=== PATIENT | male | born 1960 | race Caucasian/White ===

== ENCOUNTER 2025-05-18 05:17 | Observation (INO) ==
--- NOTE | 2025-04-07 14:14 | PAT Medication Instructions ---
Medication Instructions Date of Service April 07, 2025 Home Medications Medical Marijuana 1 dose PO UD PRN Pain amiodarone 200 mg tablet 200 mg PO QAM amlodipine 10 mg tablet 10 mg PO QAM apixaban 5 mg tablet (Eliquis) 5 mg PO BID atorvastatin 40 mg tablet 40 mg PO HS duloxetine 60 mg capsule,delayed release 60 mg PO QAM epinephrine 0.3 mg/0.3 mL injection, auto-injector 0.3 mg IM Q4H PRN Anaphylaxis finasteride 5 mg tablet 5 mg PO QAM lisinopril 10 mg tablet 10 mg PO QAM metoprolol succinate 25 mg tablet,extended release 24 hr 25 mg PO QAM nitroglycerin 0.4 mg sublingual tablet 0.4 mg sublingual UD PRN Chest Pain tamsulosin 0.4 mg capsule 0.4 mg PO BID Continue as directed epinephrine 0.3 mg/0.3 mL injection, auto-injector 0.3 mg IM Q4H PRN Anaphylaxis (if needed) nitroglycerin 0.4 mg sublingual tablet 0.4 mg sublingual UD PRN Chest Pain (if needed) ASK your prescriber and surgeon apixaban 5 mg tablet (Eliquis) 5 mg PO BID (From anesthesia perspective, apixaban/Eliquis is requested to be stopped 72 hours before surgery. Please check if okay with doctor that prescribes this to you) DO NOT take the morning of surgery lisinopril 10 mg tablet 10 mg PO QAM Medical Marijuana 1 dose PO UD PRN Pain Take morning of surgery With a small sip of water, OTHERWISE NOTHING TO EAT OR DRINK AFTER MIDNIGHT: amiodarone 200 mg tablet 200 mg PO QAM amlodipine 10 mg tablet 10 mg PO QAM duloxetine 60 mg capsule,delayed release 60 mg PO QAM finasteride 5 mg tablet 5 mg PO QAM metoprolol succinate 25 mg tablet,extended release 24 hr 25 mg PO QAM tamsulosin 0.4 mg capsule 0.4 mg PO BID Take evening before surgery atorvastatin 40 mg tablet 40 mg PO HS tamsulosin 0.4 mg capsule 0.4 mg PO BID Other Notes If you have any questions please call us at [phone] or [phone] or [phone] or [phone]
--- NOTE | 2025-04-26 14:09 | Anesthesiology Consultation ---
Date of Service April 26, 2025 Assessment & Plan (1) Encounter for pre-operative examination: - Infectious disease screening: Per assessment on 04/26/25- No known recent infectious disease contacts or current infectious disease symptoms. - Outpatient joint assessment: Pt currently scheduled for inpatient pathway. If surgeon requests review for outpatient joint pathway, patient is not a recommended candidate for outpatient joint program from anesthesia standpoint based on available information. - Eliquis instructions: Cardio notes indicate recommendation that patient hold Eliquis 2 days prior to surgery. Patient was made aware at PAT visit that for neuraxial anesthesia, anesthesia requests Eliquis needs to be held 72 hours prior to surgery and for patient to contact prescriber to see if okay from their perspective. Attempts to contact patient via phone for update/further discussion regarding this has been unsuccessful as of 05/03/25; if able to get in contact with patient prior to surgery, will update note with new information if received. - Anesthesia reaction: Patient states that Left ACL repair was done in the at [facility] under neuraxial anesthesia. Patient states he had awareness and perioperative pain that caused them to have him be put fully asleep (presumably general anesthesia). - Cardiology visit 03/18/25): "Nonischemic cardiomyopathy.. EF 37% 2012, normalized 2015.. Repeat echocardiogram to reassess.. Ascending aorta dilation.. Atherosclerotic ulcer of aorta-Repeat CTA chest to reassess.. PAF (paroxysmal atrial fibrillation).. Bradycardia, sinus.. Stable per EKG today. NSR Unusual P axis. Patient asymptomatic.. Follow-up with EP.. Continue amiodarone 200mg daily.. Anticoagulated with Eliquis 5mg BID. No bleeding concerns.. Preoperative cardiovascular examination- Clearance pending echocardiogram, labs and CTA chest .. Blood pressure is well controlled.." Chest CTA done 04/02/25. - Cardiology note 04/06/25: Chest CTA done 04/02/25 and reviewed > "Stable pe netrating ulcer of descending aorta since 2019 Ascending aorta/aortic root enlarged from previous study but stable Avoid lifting >30 pounds Routinely check BP and call if >130/80" - Echo completed 04/26/25. Cardio note 04/30/25: "ECHO with normal LVEF Moderate RV dilation. Normal systolic function Mild to moderately leaky tricuspid valve Likely secondary top untreated LISA.. Please forward to surgeon: In terms of preop risk assessment, per Juan M Criteria, patient would be placed at a moderate risk for any adverse perioperative cardiovascular events associated with TKA surgery. Patient is on a good medication regimen and no other cardiac testing or interventions would further lower that risk. He may hold Eliquis 2 days prior to surgery. Resume once HD stable per surgeons direction.." - Acceptable risk for surgery pending surgeon-ordered PCP preop evaluation (Dr. Jones/Seema; appt 04/27). Chart Review Chart Review: Patient seen in Pre Admission Testing Teaching & Discussion Pre-Anesthesia Teaching/Discussion Notes: Instructed NPO after midnight before surgery,except medications with 15 cc of water. Medication instructions provided according to the PAT guidelines. History Surgery Operation Date: 05/18/25 07:00 Proposed Procedures p Right Total Knee Arthroplasty - Yaw Niurka Hughes MD Height/Weight Height: 5 ft 4.5 in Weight: 87.1 kg Allergies Allergy/AdvReac Type Severity Reaction Status Date / Time bee venom protein (honey bee) Allergy Severe Anaphylaxis Verified 04/07/25 07:33 tramadol Allergy Mild Agitated Verified 04/07/25 07:33 Medications Home Medications Medication Instructions Recorded Confirmed Last Taken Medical Marijuana 1 dose PO UD PRN Pain 04/07/25 04/07/25 Unknown amiodarone 200 mg tablet 200 mg PO QAM 04/07/25 04/07/25 Unknown amlodipine 10 mg tablet 10 mg PO QAM 04/07/25 04/07/25 Unknown apixaban 5 mg tablet (Eliquis) 5 mg PO BID 04/07/25 04/07/25 Unknown atorvastatin 40 mg tablet 40 mg PO HS 04/07/25 04/07/25 Unknown duloxetine 60 mg capsule,delayed 60 mg PO QAM 04/07/25 04/07/25 Unknown release epinephrine 0.3 mg/0.3 mL 0.3 mg IM Q4H PRN Anaphylaxis 04/07/25 04/07/25 Unknown injection, auto-injector finasteride 5 mg tablet 5 mg PO QAM 04/07/25 04/07/25 Unknown lisinopril 10 mg tablet 10 mg PO QAM 04/07/25 04/07/25 Unknown metoprolol succinate 25 mg 25 mg PO QAM 04/07/25 04/07/25 Unknown tablet,extended release 24 hr nitroglycerin 0.4 mg sublingual 0.4 mg sublingual UD PRN Chest Pain 04/07/25 04/07/25 Unknown tablet tamsulosin 0.4 mg capsule 0.4 mg PO BID 04/07/25 04/07/25 Unknown Past Medical History Medical History Atherosclerotic ulcer of aorta [facility] BPH (benign prostatic hyperplasia) COVID-19 12/2021, asymptomatic DDD (degenerative disc disease) Glaucoma History of atrial fibrillation s/p cardiac ablation Follows with [facility] cardio KOBUK (hard of hearing) HTN (hypertension) Hx of renal calculi Nonischemic cardiomyopathy [facility] cardio visit 03/18/25: Recommend updating Echo, labs, CTA before providing clearance Osteoarthritis Poor historian Sleep apnea "Never got CPAP" Exercise / Class Metabolic Activity III < 4 Walking/Shop/Light housework Past Family History Family History Other No family history of adverse response to anesthesia Past Surgical History Surgical History History of back surgery x4, lumbar History of cardiac cath "Years ago"- no stents History of cardiac radiofrequency ablation History of colonoscopy History of hernia repair History of knee surgery Left ACL repair ([place]) Nausea and vomiting after administration of anesthetic agent "with most recent surgery"; no issues with prior/other surgeries/anesthesia S/P cystoscopy with ureteral stent placement w/laser destruction of stones S/P epidural steroid injection Past Anesthesia History No Family Hx of Anesthesia Complications and Other * Patient states that Left ACL repair was done in the at [facility] under neuraxial anesthesia. Patient states he had awareness and perioperative pain that caused them to have him be put fully asleep (presumably general anesthesia). History of PONV No Hx of Motion Sickness and History of PONV Social History Smoking Status: Former smoker Do You Dip or Chew Tobacco: No (Quit 1999) Smoking End Date: Quit 1999 Hx Alcohol Use: Yes Alcohol type: beer alcohol intake frequency: holidays/special occasions only substance use type: former substance user (Many years ago for cocaine/heroin), marijuana (Daily medical marijuana), crack/cocaine and heroin Review of Systems Patient denies chest pain, shortness of breath, fever, chills, cough, wheezing, palpitations. Physical Exam Vital Signs BP 148/90 P 63 TEMP 97.7 SP02 97%RA RESP 16 Physical Full cervical extension range of motion. Full TMJ range of motion. TMD > 3.5 finger breaths Mallampati Score I Dentition: several missing teeth Lungs: clear throughout to auscultation Cardiac: regular rate and rhythm, no murmurs noted Spine: normal Carotid arteries: negative bruit Extremities: no LE edema Lab Results Anesthesia Preop Results Results Anesthesia Widget: WBC 6.60 K/ul (4.8-10.8) 04/26/25 Hgb 15.6 g/dl (14.0-18.0) 04/26/25 Hct 44.7 % (42.0-52.0) 04/26/25 Plt 215 K/uL (130-400) 04/26/25 Na 144 mmol/L (136-145) 04/26/25 K 3.3 mmol/L (3.5-5.1) L 04/26/25 Cl 104 mmol/L (98-107) 04/26/25 CO2 30 mmol/L (21-32) 04/26/25 BUN 11 mg/dl (6-23) 04/26/25 Creat 0.76 mg/dl (0.6-1.4) 04/26/25 Glucose Level 93 mg/dl (70-99(Fasting)) 04/26/25 PT 10.0 Seconds (9.0-12.0) 04/26/25 PTT 28 Seconds (21-31) 04/26/25 INR 0.9 (0.9-1.1) 04/26/25 Urine Color Yellow 04/26/25 Urine Appearance Clear (Clear) 04/26/25 Urine pH 7.0 (4.5-7.5) 04/26/25 Urine Specific [place] 1.010 (1.000-1.030) 04/26/25 Urine Protein Negative (Negative) 04/26/25 Urine Glucose (UA) Negative (Negative) 04/26/25 Urine Ketones Negative (Negative) 04/26/25 Urine Blood Negative (Negative) 04/26/25 Urine Nitrite Negative (Negative) 04/26/25 Urine Bilirubin Negative (Negative) 04/26/25 Urine Urobilinogen Negative (Negative) 04/26/25 Urine Leukocyte Esterase Negative (Negative) 04/26/25 Blood Type O Positive 04/26/25 Antibody Screen NEGATIVE 04/26/25 Testing Electrocardiogram Date: 03/18/25 Unusual P axis, possible ectopic atrial bradycardia. 54bpm. Moderate voltage criteria, may be normal variant. Reviewed at Cardio visit from same day* Echocardiogram Date: 04/26/25 EF 65%. Moderate cLVH. Grade II DD. Moderate RVD with normal systolic function. Mild AI. Mild to moderate TR. Mildly elevated pulmonary artery pressures; estimated PASP 36mmhg and PAMP is 26mmhg. Stress Test Date: 03/07/23 Type: nuclear Negative for ischemia; however the TID is upper limits of normal at 1.27 ( abnormal TID could correlate with balanced ischemia). LVEF 44%. Could consider cardiac CT or cath if clinically warranted. Stress test findings reviewed by [facility] Cardio; per note 03/08/23, "Nuclear stress test dicussed with Dr. Lawton.. No evidence of ischemia, dilation likely secondary to AFIB" Other Testing Chest CTA Date: 04/02/2025 FINDINGS VASCULAR: Thoracic aorta is patent with mild atherosclerosis. Focal dissection/penetrating atherosclerotic ulcer at the proximal descending aorta is unchanged measuring approximately 1.5 x 0.9 cm, previously measured 1.7 x 1.1 cm. Apparent tri-leaflet aortic valve with no significant annular calcification. Aortic arch branching is conventional. Major arch vessels are patent to the extent visualized. Mild dilation of main pulmonary artery measuring up to 3.7 cm with no central filling defect. Sinus of Valsalva measures 4.4 x 4.1 x 4.3 cm, previously measured 4.1 x 4.0 x 4.1 cm. Ascending aorta measures 4.5 cm in maximum dimension, previously measured 4.1 cm. Descending aorta measures 4.3 cm in maximum dimension, previously measured 4.3 cm. The visualized abdominal aorta is patent and normal in caliber. Celiac artery is patent. Superior mesenteric artery is patent to the extent visualized. Atherosclerosis of bilateral renal arteries with no significant ostial stenosis. Chest: There is no focal airspace consolidation. 5 mm right middle lobe nodule is stable. No suspicious pulmonary nodules. Central airways are patent. Minimal scattered atelectasis/scarring. There is no pleural effusion. No pericardial effusion. Moderate coronary artery atherosclerosis in the LAD distribution. No pathologically enlarged mediastinal or axillary lymph nodes. Upper abdomen: Left renal cyst. Osseous structures: No suspicious lytic or blastic lesions. Degenerative disc disease in thoracic spine is moderate to severe. IMPRESSION Focal dissection/penetrating atherosclerotic ulcer in the proximal descending aorta is stable dating back to 2019. Ectasia of ascending aorta measuring up to 4.5 cm. Ectasia of aortic root measuring up to 4.4 cm.
[2025-05-18] MEDS: LR 500ML BOLUS, THEN 15ML/HR IV SCH (06:12)
[2025-05-18] MEDS: ACETAMINOPHEN 500 MG TAB PO SCH ×2 (06:12→16:10)
[2025-05-18] MEDS: CeleBREX 200 MG CAP PO SCH ×2 (06:12→21:36)
[2025-05-18] MEDS: LR 60ML/HR IV SCH (06:13)
[2025-05-18] MEDS ORDERED: BUPIVACAINE 0.25% PF 30 ML VIAL ONE (06:25)
[2025-05-18] MEDS ORDERED: BUPIVACAINE 0.5 % 5 MG/1 ML PF 10ML VIAL ONE (06:25)
[2025-05-18] MEDS ORDERED: ROCURONIUM BROMIDE 10 MG/ML 5 ML VIAL IV ONE (06:27)
[2025-05-18] MEDS ORDERED: ONDANSETRON INJ 2 MG/ML 2 ML VIAL ONE (06:27)
[2025-05-18] MEDS ORDERED: PROPOFOL IV EMULSION 10 MG/ML 20 ML VIAL IV ONE ×2 (06:27→07:19)
[2025-05-18] MEDS ORDERED: MIDAZOLAM HCL 1 MG/ML 2ML VIAL ONE (06:27)
[2025-05-18] MEDS ORDERED: ePHEDrine sulfate 50 MG/5 ML SYR ONE (06:30)
[2025-05-18] MEDS ORDERED: PHENYLEPHRINE 100MCG/ML 5ML SYR ONE (06:30)
--- NOTE | 2025-05-18 06:46 | History & Physical Bridge Note ---
Date of Service May 18, 2025 History & Physical Bridge Note I have examined the patient, reviewed the History & Physical and in the interval since the performance of the History & Physical I have noted the following changes of clinical significance: no changes noted
[2025-05-18] MEDS: TRANEXAMIC ACID 1,000 MG **IV Pre-op IV SCH (06:48)
[2025-05-18] MEDS ORDERED: ONDANSETRON INJ 2 MG/ML 2 ML VIAL IV PRN ×2 (07:25→11:30)
[2025-05-18] MEDS ORDERED: PROMETHAZINE HCL 6.25 MG in SODIUM CHLORIDE 0.9% 50 ML IV PRN (07:25)
[2025-05-18] MEDS ORDERED: ATROPINE SULFATE 0.1 MG/ML 10ML SYR IV PRN (07:25)
[2025-05-18] MEDS ORDERED: DEXAMETHASONE SOD INJ 4 MG/ML VIAL ONE (07:47)
[2025-05-18] MEDS ORDERED: diphenhydrAMINE 50 MG/ML VIAL ONE (07:49)
[2025-05-18] MEDS: ORTHO JOINT ANESTHETIC ONE (07:52)
[2025-05-18] MEDS: ROPIV 0.5% 246mg, Ketorolac 30mg, EPINEPHrine 0.5mg in NSS INFIL SCH (09:10)
--- NOTE | 2025-05-18 09:41 | Post Operative Brief Note ---
Immediate Post Op Note Date of Surgery May 18, 2025 Pre & Post Diagnosis Operation Date: 05/18/25 07:00 Pre-Op Diagnosis: Right Knee Degenerative Joint Disease Post-Op Diagnosis: Right Knee Degenerative Joint Disease I identified the patient and participated in the time-out.: Yes Procedure Operation Date: 05/18/25 07:00 Actual Procedures p Right Total Knee Arthroplasty(Right) - Yaw Hughes MD Surgeon Yaw Hughes MD Glass Processing Worker Niurka Amaya PA-C (No fellow avail) Estimated Blood Loss 100 Findings Consistent with Post-Op Diagnosis Fluids 1000 cc Specimens Right knee bone & Soft tissue Anesthesia Type General Regional Complications none
--- NOTE | 2025-05-18 09:42 | Operative Report ---
Post Operative Report Pre & Post Diagnosis Operation Date: 05/18/25 07:00 Pre-Op Diagnosis: Right Knee Degenerative Joint Disease Post-Op Diagnosis: Right Knee Degenerative Joint Disease I identified the patient and participated in the time-out.: Yes Procedure Operation Date: 05/18/25 07:00 Actual Procedures p : Right Total knee replacement, imageless computer assisted navigation (Right) - Yaw Hughes MD Surgeon Yaw Hughes MD Latex Spooler Niurka Amaya PA-C (No fellow avail) Estimated Blood Loss 100 Findings See Below Examined Under Anesthesia: ROM -- There was 5 degrees to 115 degrees of flexion Ligamentous examination -- revealed stable Diego, posterior drawer, varus and valgus stress at 5 and 30 degrees. [place] Grade III changes of Patellofemoral compartment, IV changes Medial Compartment, grade III changes Lateral Compartment with lateral root tear and displaced lateral meniscus. Significant synovitis. Bones were soft. Fluids 1000 cc Specimens Right knee bone & Soft tissue Anesthesia Type General Regional Complications none Indications This is a 65-year-old male who has clinical and radiographic findings consistent with osteoarthritis of the right knee. I recommended that a right total knee replacement be performed. The patient understands the risks of surgery, which include but not limited to: bleeding, infection, re-operation, damage to nerves and arteries, continued knee pain, knee stiffness, DVT, and . The patient understands all these instructions and explanations, all his questions have been satisfactorily addressed, and the patient has elected to proceed. Informed consent was signed. Description of Procedure IMPLANTS: 1. Femur: Triathlon #5 right PS. 2. Tibia: Triathlon #5 [place] with 12 x 50 mm stem. 3. Insert: Triathlon #5 x 11 mm PS X3 poly. 4. Patella: Triathlon A35 x 10 mm X3 poly. 5. Palacos cement. Niurka Amaya PA-C is assisting with positioning, retracting, and closure due to fellow not available. Procedure: The patient was taken to the Operating Room and placed in the supine position after spinal and adductor canal nerve block was administered. My initials and a multidisciplinary time-out were used to identify the right leg as the correct operative limb. The patient then required general anesthesia. A tourniquet was placed high on the thigh. Prior to the incision, 2 grams of intravenous Ancef were given. One g of TXA was given pre-operatively and another after the tourniquet was released. The right leg was then prepped and draped in a standard sterile fashion. An Esmarch was used to exsanguinate the leg, and the tourniquet was inflated to 250 mmHg. The planned mid-line 20 cm incision was created exposing the extensor mechanism. The medial parapatellar arthrotomy was made and the patella was everted. The patella was addressed first. It was prepared by reaming from 25 mm down to 15 mm. An A35 button was found to fit best. The peg holes were made in the standard fashion. The femur was addressed next and using computer assisted OrthoAlign with 3 degrees of flexion and 0 degrees of valgus, removing 10 mm in the standard fashion for the distal cut. The cut was made and after making the Tibial cut and checking the balancing using OrthoAlign Lantern, Flexion/Extension gap 11 mm laterally & 7 mm medially. The Lantern was set to 8 which matched exactly the posterior referencing guide, set at 6 deg valgus. The 4-in-1 cutting block for a size 5 femur was placed. These cuts and the cuts to place the box were made in the standard fashion. The distal pegs were created after testing knee stability with trial components in and using the trial femur as a guide in the standard fashion. The tibia cut with using imageless computer assisted OrthoAlign, taking 2 mm from the medial low side. There was sufficient extension and flexion gap to fit a 11 mm spacer. A #5 Tibial baseplate fit well. A trial with a 11 mm spacer showed excellent stability in both flexion and extension, with good ligament balance, and thumbs free patellar tracking. Range of motion of 0-125 degrees. The tibial baseplate was prepped for the keel and stem. A stem was used due to some areas of soft bone, to avoid subsidence. All components were removed. 90 ml of total knee cocktail were injected into the soft tissues and periosteum. All surfaces were copiously irrigated prior to placement of the components. The Tibial baseplate followed by femoral component were cemented in place and a 11 mm trial placed. Next, the patellar button was placed using the same cement. Once the cement had cured, the range of motion and stability were unchanged. The 11 mm X3 poly was placed. Again, the range of motion and stability were un changed. The tourniquet was deflated. Hemostasis was obtained. Another 1g TXA was given. The extensor mechanism was closed with 1-0 Vicryl and 0 Stratafix with the knee bent approximately 60 degrees in a standard fashion. The peritenon and deep fascia was closed with 2-0 Vicryl. The subcutaneous layer was closed with 3-0 Vicryl. The skin was closed with Zipline and shield. The limb was cleaned and dried. 4x4 dressing was placed over top followed by ABDs, sterile Webril, and a foot to thigh Todd bandage. The patient was then transferred to the Recovery Room in stable condition. The sponge and needle counts were correct. POST-OP INSTRUCTIONS: The patient will be WBAT. The patient will be admitted to the hospital. Complete 24-hour course antibiotics. Labs will be obtained during the stay. DVT prophylaxis will include aspirin for 6 weeks, TEDs, and mechanical foot pumps. The dressing will be changed, postop day #2-3, and covered with a Silverlon dressing. I attest to the content of the Intraoperative Record and any orders documented therein. Any exceptions are noted below.
--- NOTE | 2025-05-18 10:11 | Operative Report ---
Post Operative Report Pre & Post Diagnosis Operation Date: 05/18/25 07:00 Pre-Op Diagnosis: Right Knee Degenerative Joint Disease Post-Op Diagnosis: Right Knee Degenerative Joint Disease I identified the patient and participated in the time-out.: Yes Procedure Operation Date: 05/18/25 07:00 Actual Procedures p Right Total Knee Arthroplasty(Right) - Yaw Hughes MD Surgeon Yaw Hughes MD Advertising Material Distributor Niurka Amaya PA-C (No fellow avail) Estimated Blood Loss 100 Findings Consistent with Post-Op Diagnosis Specimens Routine bone and soft tissue right knee Description of Procedure I was present for the entire case. I assisted with patient positioning, prepping, draping, retraction, suctioning, hardware placement, wound closure, dressing and splint application. Please refer to Dr. Hughes's procedure note for full details. I attest to the content of the Intraoperative Record and any orders documented therein. Any exceptions are noted below.
--- NOTE | 2025-05-18 10:40 | XRay Report ---
XR knee RT 1 or 2V routine HISTORY: 65 years-old Male Surgical Post Op right knee arthroplasty COMPARISON: 03/11/2025 TECHNIQUE: 2 views of the right knee FINDINGS: Satisfactory alignment of the total joint arthroplasty with patellar resurfacing. Expected postoperat mckenzie soft tissue swelling with deep tissue air. No acute fracture, dislocation, osseous erosion or opa que foreign body. IMPRESSION: Satisfactory alignment of the total joint arthroplasty. ACT 112: Negative or not required by law. The above report was generated using voice recognition software. It may contain grammatical, syntax o r spelling errors. Electronically signed by: Mark Mead M.D. 05/18/2025 10:38 AM
--- NOTE | 2025-05-18 11:01 | Anesthesiology Progress Note ---
Date of Service May 18, 2025 Anesthesia Post Procedure Vital Signs Vital Signs: Temp Pulse Resp BP Pulse Ox O2 Del Method O2 Flow Rate 05/18/25 11:00 66 12 116/69 95 Nasal Cannula 3 05/18/25 10:45 66 22 126/74 93 Nasal Cannula 3 05/18/25 10:30 36.5 C 63 18 121/72 92 Nasal Cannula 3 05/18/25 10:20 64 21 139/82 94 Oxymask 5 05/18/25 10:10 61 17 120/67 94 Oxymask 5 05/18/25 10:00 62 21 142/79 H 93 Oxymask 5 05/18/25 09:53 36.3 C L 67 19 135/77 93 Oxymask 5 05/18/25 05:49 36.6 C 53 L 20 138/89 93 Room Air Pain Intensity Right Knee: Pain Intensity: 6 Transfer of Care Handoff Completed per policy Notes Mental Status: alert / awake / arousable and participated in evaluation Patient Amnestic to Procedure: Yes Nausea / Vomiting: adequately controlled Pain: adequately controlled Airway Patency, RR, SpO2: stable & adequate BP & HR: stable & adequate Hydration State: stable & adequate Neuraxial Anesthesia: was administered and sensory block is resolving Anesthetic Complications: no major complications apparent and Pt Satisfied with anesthetic care
[2025-05-18] MEDS ORDERED: diphenhydrAMINE Capsule 25 MG CAP PO PRN (11:30)
[2025-05-18] MEDS ORDERED: MAGNESIUM HYDROXIDE SUSP 30 ML UDC PO PRN (11:30)
[2025-05-18] MEDS ORDERED: METOCLOPRAMIDE HCL INJ 5 MG/ML 2 ML VIAL IV PRN (11:30)
[2025-05-18] MEDS ORDERED: NALOXONE HCL 0.4 MG/1 ML VIAL/CARP IV PRN (11:30)
[2025-05-18] MEDS ORDERED: ALUMINUM/MAGNESIUM SUSP 30 ML UDC PO PRN (11:30)
[2025-05-18] MEDS ORDERED: NITROGLYCERIN SL 0.4 MG/TAB TAB SL PRN (11:30)
[2025-05-18] MEDS: HYDROmorphone INJ 0.5 MG/0.5 ML SYR IV PRN (13:09)
--- NOTE | 2025-05-18 14:19 | Orthopedic Progress Note ---
Date of Service May 18, 2025 Assessment & Plan (1) Osteoarthritis of right knee: Plan: POD #0 s/p R TKA, doing as well as expected. Resume diet. WBAT with walker. OOB to chair. Continue pain control. Check labs tomorrow. DVT prophylaxis: TEDs 3 weeks, foot pumps while in hospital, Resume Eliquis. PT/OT. D/C planning. Dressing to be changed POD 2-3 to Silverlon type dressing. Present on Admission?: Yes Admission and Anticipated Discharge Date Admission Date: May 18, 2025 Subjective Doing well Physical Exam Physical Exam: RLE: Sensation to light touch intact distally. Wiggling toes and ankle. Able to do straight leg raise. Dressing clean, dry, intact. Calf soft and non-tender. Results & Data Vital Signs (Past 12 Hours) Vital Signs Temp Pulse Resp BP Pulse Ox O2 Del Method O2 Flow Rate 05/18/25 13:15 73 14 108/79 96 Nasal Cannula 2 05/18/25 12:15 75 16 123/70 95 Nasal Cannula 2 05/18/25 11:45 75 16 123/70 95 Nasal Cannula 2 05/18/25 11:15 67 17 123/72 94 Nasal Cannula 2 05/18/25 11:00 66 12 116/69 95 Nasal Cannula 3 05/18/25 10:45 66 22 126/74 93 Nasal Cannula 3 05/18/25 10:30 36.5 C 63 18 121/72 92 Nasal Cannula 3 05/18/25 10:20 64 21 139/82 94 Oxymask 5 05/18/25 10:10 61 17 120/67 94 Oxymask 5 05/18/25 10:00 62 21 142/79 H 93 Oxymask 5 05/18/25 09:53 36.3 C L 67 19 135/77 93 Oxymask 5 05/18/25 05:49 36.6 C 53 L 20 138/89 93 Room Air Laboratory Results Impressions Knee X-Ray 05/18/25 10:08 XR knee RT 1 or 2V routine HISTORY: 65 years-old Male Surgical Post Op right knee arthroplasty COMPARISON: 03/11/2025 TECHNIQUE: 2 views of the right knee FINDINGS: Satisfactory alignment of the total joint arthroplasty with patellar resurfacing. Expected postoperative soft tissue swelling with deep tissue air. No acute fracture, dislocation, osseous erosion or opaque foreign body. IMPRESSION: Satisfactory alignment of the total joint arthroplasty. ACT 112: Negative or not required by law. The above report was generated using voice recognition software. It may contain grammatical, syntax or spelling errors. Electronically signed by: Mark Mead M.D. 05/18/2025 10:38 AM
[2025-05-18] MEDS: SODIUM CHLORIDE 0.9% 1,000 ML IV SCH (14:20)
--- NOTE | 2025-05-18 15:03 | Consultation ---
Date of Consultation May 18, 2025 Assessment & Plan (1) S/P total knee arthroplasty: (2) HTN (hypertension): (3) History of atrial fibrillation: Plan 65 year old male s/p R total knee arthroscopy recovering well post operatively. #s/p R total knee arthroplasty: POD# 0 s/p R total knee arthroplasty with Dr. Hughes. Per ortho for pain control, wound care, anticoagulation and activities. Monitor H&H, baseline Hgb: 15.6 on 04/26. Trend CBC in AM Continue incentive spirometry PT/OT when appropriate #HTN: Chronic Takes Amlodipine, Lisinopril; continue #H/O A Fib: s/p ablation @ [facility]; follows with [facility] Takes Amiodarone; continue Takes Eliquis; to be restarted by primary team Has been on hold since 05/13 Disposition: PCP: Anisa Jones Code Status: Full VTE Prophylaxis: per admitting team I spent a total of 60 minutes coordinating, documenting, and providing care for this patient excluding time spent inthe performance of separately billed services or time spent by another provider/QHP. Supervising Physician Co-Signing Physician Notes Patient is a 65-year-old male with history of atrial fibrillation on chronic anticoagulation with Eliquis, coronary artery disease, hypertension, systolic CHF, hyperlipidemia, tobacco use disorder, LISA intolerance to CPAP, left foot drop, alcohol use and other medical problems was consulted for postop medical management. Patient underwent right total knee arthroplasty for right knee degenerative joint disease by Dr. Hughes on 05/18/2025. Postoperatively patient denies any significant pain at surgical site. Offers no complaints. Denies any chest pain, dyspnea, nausea, vomiting, abdominal pain, dizziness. Reviewed old records and imaging studies. On exam patient is well-built and nourished, no apparent distress, normocephalic atraumatic, EOMI, normal breath sounds, clear to auscultation, S1-S2, no murmur, no pedal edema, right knee surgical site in dressing, abdomen soft, nontender, normal bowel sounds, alert, awake, oriented, grossly no focal deficits. S/P right total knee arthroplasty, postoperative state. Monitor for postop anemia. Bowel regimen to prevent constipation. Wound care as per primary team. PT OT when appropriate. Resume anticoagulation once cleared by surgery. Continue home medications for A-fib, hypertension, hyperlipidemia. Monitor volume status. Transfuse PRBCs as needed. I personally interviewed and examined the patient at bedside. I have reviewed the advanced practitioner's documentation on the date of service referred in note and agree with plan. Patient's care is coordinated with Julia DOW. Please refer to the documentation above for details of patient's presentation and for discussion of other issues. I spent a total [id number] coordinating, documenting, and providing care for this patient excluding time spent in the performance of separately billed services or time spent by another provider/QHP. History of Present Illness Requesting Physician: Dr. Hughes Reason for Consultation: post operative medical management Attending Physician: Yaw Hughes MD History of Present Illness Mr. Salazar is a 65 year old Male that presents to the [facility] for post operative medical management for an elective post operative Right total knee arthroplasty after failed outpatient conservative management. Additional PMH includes HTN, H/O AF s/p ablation (years ago), and BPH. Post operatively, patient is recovering well. He tolerated a regular meal without nausea. He has not been out of bed yet; is using the urinal without difficulty. He is AAOx3. He reportedly has taken his last Eliquis on 05/13. Pt denies FISHER, dizziness, SOB, chest pain, swelling, neuropathy, visual or auditory changes. He reportedly had a poor experience before waking from anes thesia; but did not experience this today. [facility] Hospitalist service was consulted for post operative medical management. We are available 07/01 via [place] [employer] for any concerns. Please see A/P for further details. Allergies Allergy/AdvReac Type Severity Reaction Status Date / Time bee venom protein (honey bee) Allergy Severe Anaphylaxis Verified 05/18/25 05:45 tramadol Allergy Mild Agitated Verified 05/18/25 05:45 Home Medications Medication Instructions Recorded Confirmed Type Medical Marijuana 1 dose PO UD PRN Pain 04/07/25 05/18/25 History amiodarone 200 mg tablet 200 mg PO QAM 04/07/25 05/18/25 History amlodipine 10 mg tablet 10 mg PO QAM 04/07/25 05/18/25 History apixaban 5 mg tablet (Eliquis) 5 mg PO BID 04/07/25 05/18/25 History atorvastatin 40 mg tablet 40 mg PO HS 04/07/25 05/18/25 History duloxetine 60 mg capsule,delayed 60 mg PO QAM 04/07/25 05/18/25 History release epinephrine 0.3 mg/0.3 mL 0.3 mg IM Q4H PRN Anaphylaxis 04/07/25 05/18/25 History injection, auto-injector finasteride 5 mg tablet 5 mg PO QAM 04/07/25 05/18/25 History lisinopril 10 mg tablet 10 mg PO QAM 04/07/25 05/18/25 History metoprolol succinate 25 mg 25 mg PO QAM 04/07/25 05/18/25 History tablet,extended release 24 hr nitroglycerin 0.4 mg sublingual 0.4 mg sublingual UD PRN Chest Pain 04/07/25 05/18/25 History tablet tamsulosin 0.4 mg capsule 0.4 mg PO BID 04/07/25 05/18/25 History Patient History Medical History Osteoarthritis of right knee Nonischemic cardiomyopathy [facility] cardio visit 03/18/25: Recommend updating Echo, labs, CTA before providing clearance Atherosclerotic ulcer of aorta [facility] Hx of renal calculi Sleep apnea "Never got CPAP" COVID-19 12/2021, asymptomatic Poor historian DDD (degenerative disc disease) Osteoarthritis BPH (benign prostatic hyperplasia) [place] (hard of hearing) Glaucoma History of atrial fibrillation s/p cardiac ablation [facility] HTN (hypertension) Surgical History Nausea and vomiting after administration of anesthetic agent "with most recent surgery"; no issues with prior/other surgeries/anesthesia S/P cystoscopy with ureteral stent placement w/laser destruction of stones S/P epidural steroid injection History of colonoscopy History of knee surgery Left ACL repair (, ) History of hernia repair History of back surgery x4, lumbar History of cardiac cath "Years ago"- no stents History of cardiac radiofrequency ablation Family History Other No family history of adverse response to anesthesia Social History Smoking Status: Former smoker Smoking End Date: Quit 1999; Second Hand Exposure: No; Do You Dip or Chew Tobacco: No (Quit 1999); Tobacco Cessation Education Requested by Patient: No Hx Alcohol Use: Yes Alcohol type: beer Preferred Language: Somali Communication Ability: Effective Porcelain Buildup Assistant Required: No Beliefs That Will Affect Care: None Current Living Situation: Alone Other Information That Helps Us Care for You: No Feels Safe at Home: Yes Safety Concerns: Feels Safe At This Time Assistive Devices: None Review of Systems Review of Systems: Neuro: (-) Falls, trauma, slurred speech HEENT: (-) FISHER, dizziness, dysphagia, visual or auditory changes CV: (-) CP, palpitations, swelling Resp: (-) SOB GI: (-) appetite changes, N/V/D, bowel changes : (-) urinary changes Skin: (-) rashes Psych: (-) anxiety, depression Physical Exam Physical Exam: Neuro: AAOx4, PERRLA, no aphagia, memory changes, CNII-XII grossly intact HEENT: head normocephalic, moist mucus membranes CV: S1/S2, (-) M/G/R, (-) edema, cap refill < 3 seconds Resp: Lungs CTA in all [place]. On RA GI: Abdomen S/NT/ND, Ax4 bowel sounds, (-) CVA tenderness Musculoskeletal: 5/5 B/L UE strength, 5/5 B/L LE strength. R knee in CPM; able to move toes and no neuropathy Skin: (-) rashes , (-) erythema. Psych: euthymic mood Results & Data Vital Signs (Past 12 Hours) Vital Signs Temp Pulse Resp BP Pulse Ox O2 Del Method O2 Flow Rate 05/18/25 13:15 73 14 108/79 96 Nasal Cannula 2 05/18/25 12:15 75 16 123/70 95 Nasal Cannula 2 05/18/25 11:45 75 16 123/70 95 Nasal Cannula 2 05/18/25 11:15 67 17 123/72 94 Nasal Cannula 2 05/18/25 11:00 66 12 116/69 95 Nasal Cannula 3 05/18/25 10:45 66 22 126/74 93 Nasal Cannula 3 05/18/25 10:30 36.5 C 63 18 121/72 92 Nasal Cannula 3 05/18/25 10:20 64 21 139/82 94 Oxymask 5 05/18/25 10:10 61 17 120/67 94 Oxymask 5 05/18/25 10:00 62 21 142/79 H 93 Oxymask 5 05/18/25 09:53 36.3 C L 67 19 135/77 93 Oxymask 5 05/18/25 05:49 36.6 C 53 L 20 138/89 93 Room Air Diagnostic Findings Knee X-Ray 05/18/25 10:08 XR knee RT 1 or 2V routine HISTORY: 65 years-old Male Surgical Post Op right knee arthroplasty COMPARISON: 03/11/2025 TECHNIQUE: 2 views of the right knee FINDINGS: Satisfactory alignment of the total joint arthroplasty with patellar resurfacing. Expected postoperative soft tissue swelling with deep tissue air. No acute fracture, dislocation, osseous erosion or opaque foreign body. IMPRESSION: Satisfactory alignment of the total joint arthroplasty. ACT 112: Negative or not required by law. The above report was generated using voice recognition software. It may contain grammatical, syntax or spelling errors. Electronically signed by: Mark Mead M.D. 05/18/2025 10:38 AM
[2025-05-18] MEDS: ASCORBIC ACID 500 MG TAB PO SCH (16:10)
[2025-05-18] MEDS: FERROUS GLUCONATE 324 MG TAB PO SCH (16:10)
[2025-05-18] MEDS: Scopolamine CHECK PATCH PLACEMENT SCH (16:11)
[2025-05-18] MEDS: ATORVASTATIN 40 MG TAB PO SCH (21:36)
[2025-05-18] MEDS: TAMSULOSIN HCL 0.4 MG CAP PO SCH (21:36)
[2025-05-18] MEDS: SENNA 8.6 MG TAB PO SCH (21:39)
[2025-05-18] MEDS: DOCUSATE SODIUM 100 MG CAP PO SCH (21:39)
[2025-05-19 06:36] LABS: Hematocrit (blood only) 36.0 % (42.0-52.0); Hemoglobin 12.2 g/dL (14.0-18.0); Mean Corpuscular Hemoglobin 30.5 pg (25.0-34.0); Mean Corpuscular Volume 90.0 fL (80.0-100.0); Platelet Count 188 K/uL (130-400); RDW Standard Deviation 43.3 fL (36.4-46.3); Red Blood Count 4.00 M/uL (4.70-6.10); White Blood Count 9.93 K/ul (4.8-10.8)
[2025-05-19 07:01] LABS: Anion Gap 7.0 (3-11); Blood Urea Nitrogen 12.0 mg/dl (6-23); Calcium 8.0 mg/dl (8.6-10.3); Carbon Dioxide 29.0 mmol/L (21-32); Chloride 106.0 mmol/L (98-107); Creatinine Clr Calc Pharmacy 97.6 ml/min; Glucose 110.0 mg/dl (70-99(Fasting)); Potassium 3.5 mmol/L (3.5-5.1); Sodium 142.0 mmol/L (136-145)
[2025-05-19] MEDS: FINASTERIDE 5 MG TAB PO SCH (07:59)
[2025-05-19] MEDS: dexAMETHasone 10 MG in SYRINGE 0 ML IV SCH (07:59)
[2025-05-19] MEDS: AMIODARONE 200 MG TAB PO SCH (07:59)
[2025-05-19] MEDS: APIXABAN 5 MG TABLET PO SCH (08:00)
[2025-05-19] MEDS: MULTIVITAMIN TAB PO SCH (08:00)
[2025-05-19] MEDS: METOPROLOL SUCC 25MG EXT REL TAB PO SCH (08:00)
--- NOTE | 2025-05-19 09:19 | Orthopedic Progress Note ---
Date of Service May 19, 2025 Assessment & Plan (1) Osteoarthritis of right knee: Plan: POD #1 s/p R TKA, doing as well as expected. Resume diet. WBAT with walker. OOB to chair. Continue pain control. Labs stable. Drop in hemoglobin is consistent with acute blood loss anemia. Asymptomatic and no transfusions required at this time. Appreciate hospitalist input and assistance with medical management. DVT prophylaxis: TEDs 3 weeks, foot pumps while in hospital, Eliquis started this morning. PT/OT. D/C planning. Due to his pain, we will continue to monitor. He wants to see how his pain is controlled this afternoon and if stable he will go home then. If not and his pain is still elevated then he will stay another night for pain control. Will reassess this afternoon. Dressing to be changed POD 2-3 to Silverlon type dressing. Findings discussed with Dr. Hughes. Admission and Anticipated Discharge Date Admission Date: May 18, 2025 Supervising Physician Co-Signing Physician Notes I, Dr. Hughes, saw and examined the patient today, discussed findings with my PA and plan of care. I reviewed the above findings and plan of care and agree. He was in significant pain, will attempt to get it under control, we will require the IV breakthrough pain meds. Will follow-up on discharge today and reevaluate tomorrow. Antonella Jay is sitting up in his chair. Participating in physical therapy. States that he has pain and it was not below a 6-8 all night. He states he is on oxycodone and he does not really think that is helping. He does have IV medication available although he is unsure if he had that. Denies any numbness or tingling in his leg. Otherwise is feeling fine, tolerating regular diet. He is not lightheaded or dizzy. Physical Exam Physical Exam: RLE: Sensation to light touch intact distally. Wiggling toes and ankle. Able to do straight leg raise. Dressing clean, dry, intact. Calf soft and non-tender. Musculoskeletal: Exam of his right lower extremity: No significant distal edema. Postoperative dressings are clean, dry and intact. Full ankle range of motion with normal strength. Sensation is normal and distal pulses are 2+. Capillary refill is brisk. He is able to gently flex and extend his knee although with his pain today he does not really want to do that much. Calf is supple and nontender with palpation With light touch. Results & Data Vital Signs (Past 12 Hours) Vital Signs Temp Pulse Pulse Resp BP Pulse Ox O2 Del Method 05/19/25 08:07 36.3 C L 71 20 122/78 99 Room Air 05/19/25 03:15 36.5 C 70 20 124/75 94 Room Air Laboratory Results 05/19/25 Range/Units 05:54 WBC 9.93 (4.8-10.8) K/ul RBC 4.00 L (4.70-6.10) M/uL Hgb 12.2 L (14.0-18.0) g/dL Hct 36.0 L (42.0-52.0) % MCV 90.0 (80.0-100.0) fL MCH 30.5 (25.0-34.0) pg MCHC 33.9 (32.0-36.0) g/dL RDW Std Deviation 43.3 (36.4-46.3) fL RDW Coeff of Hunter 13.1 (11.5-14.5) % Plt Count 188 (130-400) K/uL MPV 11.7 (9.4-12.4) fL Sodium 142 (136-145) mmol/L Potassium 3.5 (3.5-5.1) mmol/L Chloride 106 (98-107) mmol/L Carbon Dioxide 29 (21-32) mmol/L Anion Gap 7 (3-11) BUN 12 (6-23) mg/dl Creatinine 0.74 (0.6-1.4) mg/dl Est Cr Clr Drug Dosing 97.6 ml/min eGFR 99.31 BUN/Creatinine Ratio 16.2 (10-20) Glucose 110 H (70-99(Fasting)) mg/dl Calcium 8.0 L (8.6-10.3) mg/dl
[2025-05-19] MEDS ORDERED: MoRPHine SULFATE 2 MG/ML CARP IV PRN (09:44)
--- NOTE | 2025-05-19 09:56 | Hospitalist Progress Note ---
Date of Service May 19, 2025 Assessment & Plan (1) S/P total knee arthroplasty: (2) HTN (hypertension): (3) History of atrial fibrillation: Plan Patient is a 65-year-old male with history of atrial fibrillation on chronic anticoagulation with Eliquis, coronary artery disease, hypertension, systolic CHF, hyperlipidemia, tobacco use disorder, LISA intolerance to CPAP, left foot drop, alcohol use and other medical problems whom is being seen in consultation for routine postop medical management s/p elective right total knee arthroplasty for right knee degenerative joint disease by Dr. Hughes on 05/18/25. Right knee degenerative joint disease s/p total right knee arthroplasty Per ortho for pain control, wound care, anticoagulation and activities. Pain rated 6-8/10 this morning. Ortho planning to reassess patient in the afternoon; if pain improved, possible DC home later today. If pain not improving, will likely stay another night for pain control. Continue incentive spirometry, PT/OT when appropriate as per ortho team. Acute blood loss anemia In setting of above, likely dilutional component contributing as well. No indication to transfuse at this time, continue to monitor. HTN Chronic, pretty well-controlled. Continue home antihypertensive regimen with routine BP checks. Atrial fibrillation on chronic anticoagulation with Eliquis S/p prior ablation at [facility], follows with [employer] cards. Continue amiodarone. Eliquis was previously placed on hold on 05/13/25 in anticipation of above >> was resumed this AM as per ortho. DVT Prophylaxis: Eliquis Code Status: FULL CODE PCP: Anisa Jones DO [[facility]] Disposition: DC planning as per ortho We will continue to follow the patient with you during their hospital stay. You can reach a member of the [facility] Hospitalist Team 07/01 via [employer]. Patient seen in collaboration with Dr. Maravilla. Please see addendum. I spent a total of 32 minutes coordinating, documenting, and providing care for this patient excluding time spent in the performance of separately billed services or time spent by another provider/QHP. This included personally rev iewing all current laboratories and imaging studies, medical reconciliation, outpatient chart review and discussion with specialists. Admission and Anticipated Discharge Date Admission Date: May 18, 2025 Supervising Physician Co-Signing Physician Notes Patient seen and examined independently. He reports significant pain at the surgical site. No complaint of fever, chills, chest pain, shortness of breath, abdomen pain or urinary symptoms. Plan to continue pain control; possible DC in a.m. if pain is improved. I have reviewed the advanced practitioner's documentation, and I agree with, and take responsibility for the plan of care I spent a total of 20 minutes coordinating, documenting, and providing care for this patient excluding time spent in the performance of separately billed services. All of the aforementioned completed while collaborating with the assigned advanced practitioner for a full treatment plan Subjective Patient seen and examined in room E309-1. Was being seen by PT shortly prior to my arrival. Endorses not sleeping well overnight due to pain. Did not feel oxycodone was helping much. Tolerating diet without issue. Passing flatus but no BM yet postoperatively. Denies any chest pain or SOB. Review of Systems Review of Systems: At least ten systems reviewed and negative, except as noted in the subjective section. Physical Exam Physical Exam: General: M, NAD, sitting up in bedside chair with RLE elevated on stool. A&Ox3. HEENT: Normocephalic, atraumatic. Oropharynx normal. Respiratory: Normal respiratory effort, CTAB. Cardiovascular: RRR, no murmur. Abdomen/GI: Active bowel sounds, soft, nontender to palpation in all quadrants. Extremities/Musculoskeletal: RLE surgical dressings C/D/I, no significant distal RLE edema. Able to gently flex and extend R knee. Otherwise able to actively move all other extremities. Neurologic: No overt focal deficits, CN's II-XI not formally tested but appear grossly intact bilaterally. Results & Data Results & Data Vital Signs (Past 12 Hours) Vital Signs Temp Pulse Pulse Resp BP Pulse Ox O2 Del Method 05/19/25 08:07 36.3 C L 71 20 122/78 99 Room Air 05/19/25 03:15 36.5 C 70 20 124/75 94 Room Air Laboratory Results Short CBC 05/19/25 Range/Units 05:54 WBC 9.93 (4.8-10.8) K/ul Hgb 12.2 L (14.0-18.0) g/dL Hct 36.0 L (42.0-52.0) % Plt Count 188 (130-400) K/uL BMP 05/19/25 05:54 Sodium 142 Potassium 3.5 Chloride 106 Carbon Dioxide 29 BUN 12 Creatinine 0.74 Glucose 110 H Calcium 8.0 L
[2025-05-19 15:12] VITALS: O2SAT 92
[2025-05-19 22:37] VITALS: PULSE 51; RESP 18
[2025-05-20 06:16] LABS: Hematocrit (blood only) 33.8 % (42.0-52.0); Hemoglobin 11.6 g/dL (14.0-18.0); Mean Corpuscular Hemoglobin 31.1 pg (25.0-34.0); Mean Corpuscular Volume 90.6 fL (80.0-100.0); Platelet Count 174 K/uL (130-400); RDW Standard Deviation 44.1 fL (36.4-46.3); Red Blood Count 3.73 M/uL (4.70-6.10); White Blood Count 10.48 K/ul (4.8-10.8)
[2025-05-20 06:50] LABS: Anion Gap 5.0 (3-11); Blood Urea Nitrogen 13.0 mg/dl (6-23); Calcium 8.3 mg/dl (8.6-10.3); Carbon Dioxide 32.0 mmol/L (21-32); Chloride 103.0 mmol/L (98-107); Creatinine Clr Calc Pharmacy 90.3 ml/min; Glucose 120.0 mg/dl (70-99(Fasting)); Magnesium 2.1 mg/dl (1.7-2.4); Potassium 4.2 mmol/L (3.5-5.1); Sodium 140.0 mmol/L (136-145)
[2025-05-20 07:51] VITALS: BP 144/71; TEMP 97.9
--- NOTE | 2025-05-20 10:08 | Hospitalist Progress Note ---
Date of Service May 20, 2025 Assessment & Plan (1) S/P total knee arthroplasty: (2) HTN (hypertension): (3) History of atrial fibrillation: Plan Patient is a 65-year-old male with history of atrial fibrillation on chronic anticoagulation with Eliquis, coronary artery disease, hypertension, systolic CHF, hyperlipidemia, tobacco use disorder, LISA intolerance to CPAP, left foot drop, alcohol use and other medical problems whom is being seen in consultation for routine postop medical management s/p elective right total knee arthroplasty for right knee degenerative joint disease by Dr. Hughes on 05/18/25. Right knee degenerative joint disease s/p total right knee arthroplasty Per ortho for pain control, wound care, anticoagulation and activities Continue incentive spirometry, PT/OT when appropriate as per ortho team Acute blood loss anemia In setting of above, likely dilutional component contributing as well Hgb stable at 11.6, asymptomatic No indication to transfuse at this time HTN Chronic, pretty well-controlled Continue home antihypertensive regimen Atrial fibrillation on chronic anticoagulation with Eliquis S/p prior ablation at [facility], follows with [facility] cards Continue amiodarone Eliquis was previously placed on hold on 05/13/25 in anticipation of above >> was resumed yesterday DVT Prophylaxis: Eliquis Code Status: FULL CODE PCP: Anisa Jones DO [[facility]] Disposition: DC planning as per ortho We will continue to follow the patient with you during their hospital stay. You can reach a member of the [facility] Hospitalist Team 07/01 via [email or web address]. Patient seen in collaboration with Dr. Maravilla. I spent a total of 30 minutes coordinating, documenting, and providing care for this patient excluding time spent in the performance of separately billed services or time spent by another provider/QHP. This included personally reviewing all current laboratories and imaging studies, medical reconciliation, outpatient chart review and discussion with specialists. Admission and Anticipated Discharge Date Admission Date: May 19, 2025 Subjective Patient seen and examined in room E309-1. Feeling much better today with optimized pain regimen. Ambulating in the halls with PT. No F/C, CP, SOB. Review of Systems Review of Systems: At least ten systems reviewed and negative except as noted in the HPI. Physical Exam Physical Exam: Gen: WD/WN, NAD, sitting in bedside chair, A&Ox3 HEENT: Normocephalic, atraumatic Lung: Clear to Auscultation bilaterally Heart: Regular rate, regular rhythm Abdomen: Soft, NT, ND +BS x 4 Extremities: + RLE knee with adhesive strips, healing incision. Able to gently flex and extend R knee, some ecchymosis Skin: Warm, no rash Results & Data Results & Data Vital Signs (Past 12 Hours) Vital Signs Temp Pulse Pulse Resp BP Pulse Ox O2 Del Method 05/20/25 07:50 36.6 C 51 L 144/71 H 92 Room Air 05/19/25 22:35 36.5 C 51 L 18 123/77 92 Room Air Laboratory Results Short CBC 05/20/25 Range/Units 05:34 WBC 10.48 (4.8-10.8) K/ul Hgb 11.6 L (14.0-18.0) g/dL Hct 33.8 L (42.0-52.0) % Plt Count 174 (130-400) K/uL BMP 05/20/25 05:34 Sodium 140 Potassium 4.2 Chloride 103 Carbon Dioxide 32 BUN 13 Creatinine 0.80 Glucose 120 H Calcium 8.3 L Diagnostic Findings Knee X-Ray 05/18/25 10:08 XR knee RT 1 or 2V routine HISTORY: 65 years-old Male Surgical Post Op right knee arthroplasty COMPARISON: 03/11/2025 TECHNIQUE: 2 views of the right knee FINDINGS: Satisfactory alignment of the total joint arthroplasty with patellar resurfacing. Expected postoperative soft tissue swelling with deep tissue air. No acute fracture, dislocation, osseous erosion or opaque foreign body. IMPRESSION: Satisfactory alignment of the total joint arthroplasty. ACT 112: Negative or not required by law. The above report was generated using voice recognition software. It may contain grammatical, syntax or spelling errors. Electronically signed by: Mark Mead M.D. 05/18/2025 10:38 AM
--- NOTE | 2025-05-20 10:32 | Discharge Summary ---
Date of Service May 20, 2025 Discharge Data Consultations 05/17/25 08:18 Consult Hospitalist Routine Procedures Performed Operation Date: 05/18/25 07:00 Actual Procedures p Right Total Knee Arthroplasty(Right) - Yaw Hughes MD Hospital Course (1) Osteoarthritis of right knee: Pierre is a 65-year-old male who is status post an elective right total knee arthroplasty by Dr. Hughes on May 18, 2025. His surgery was performed with IV sedation, spinal anesthesia and regional nerve block. He tolerated the procedure well without any intraoperative complications. X-rays in the recovery room show a stable right knee prosthesis with no evidence of hardware failure or fracture. He was given 2 g of IV Ancef preoperatively and this was continued for 24 hours after surgery. He was given 1 g of IV TXA preoperatively and also intraoperatively for bleeding prophylaxis. Postoperatively, he was allowed out of bed, weight-bear as tolerated with the assistance of a walker on his right lower extremity. Physical therapy and Occupational Therapy consults were placed. A hospitalist consult was also placed for postoperative medical management. His home medications were continued including his Eliquis which was restarted on May 19, 2025. DVT prophylaxis was started postoperatively as well and consisted of foot pumps while in hospital, his Eliquis which was resumed on May 19, 2025 and KISHOR stockings on bilateral lower extremities. He was given IV Dilaudid, Tylenol, Toradol and oxycodone for postoperative pain control. He stated on postoperative day 1 that he had significant pain in his right knee and it never went below a 6 even with pain medication. It was better controlled with IV pain medication but he was unable to be discharged home. Labs which included a CBC and CMP were completed on May 19, 2025. His hemoglobin dropped from 15-12.2 which was consistent for acute blood loss anemia. He remained asymptomatic and no transfusions were required during his inpatient stay. His CMP was normal. On postoperative day 2 his dressing was changed to a Silverlon dressing and his pain was much better controlled. He again saw physical therapy and Occupational Therapy and was deemed safe for discharge to his home. He was discharged to his home in stable condition on May 20, 2023. Home health arrangements have been made. Discharge instructions were completed and reviewed with the patient and all questions were answered. He will follow-up as scheduled as an outpatient.
--- NOTE | 2025-05-20 17:34 | Orthopedic Progress Note ---
Date of Service May 20, 2025 Assessment & Plan (1) S/P total knee arthroplasty: Plan: The patient was educated regarding today's findings. Conservative care measures were discussed. He has already completed PT and OT this morning. A Silverlon dressing was placed over the zipline. He will keep this on until he is rechecked in the office for Zipline removal. He may shower with it on. Avoid soaking. Avoid submerging. Continue with ice and elevation as well as his compression stocking for edema control. He may also use an Todd wrap for swelling control in the knee and thigh. He states he is able to wrap it on himself. Prescription for oxycodone 5 mg was sent to his pharmacy. He is unable to take tramadol and Celebrex secondary to allergy and Eliquis use. He will supplement with Tylenol as needed. Follow-up in the office in 2 weeks as scheduled. Call with any other concerns. Admission and Anticipated Discharge Date Admission Date: May 19, 2025 Subjective This 65-year-old male seen today for reevaluation of his right knee. He is 2 days status post right total knee arthroplasty done by Dr. Hughes. He states he is doing much better today than he was yesterday. Pain is under much better control. He has been able to precipitate in PT and has been ambulating in the halls with his walker. He feels ready for discharge to home. He believes his ride will be here around lunchtime. No additional complaints. He denies any chest pain, shortness of breath, nausea, vomiting, abdominal pain, chills, swea ts, or severe thigh pain. He has been sitting in bed doing his exercises. No additional complaints. Physical Exam Physical Exam: General: Well-developed, well-nourished, middle-aged male, in no acute distress. Sitting on the bed. Alert and oriented. Skin: Warm and dry with good turgor. He has a postsurgical incision on the anterior right knee. Zipline is in place. Wound edges are well-approximated. No active drainage. Extensive ecchymosis is present throughout his leg. He has diffuse edema through the leg as well. Musculoskeletal: The patient has full terminal extension. He is able to perform a straight leg raise. Intact motor function of the ankle and toes. Flexion to around 50 degrees when dangling over the side of the bed. Neurologic: Gross sensation is intact across the right leg by soft touch. Peripheral pulses are 2+. Results & Data Vital Signs (Past 12 Hours) Vital Signs Temp Pulse BP Pulse Ox O2 Del Method 05/20/25 10:52 92 05/20/25 07:50 36.6 C 51 L 144/71 H 92 Room Air Laboratory Results CBC obtained today shows a white count of 10.48. H&H of 11.6 and 33.8. Platelets 274,000. PRP shows normal electrolytes. BUN of 13 with creatinine 0.80. Glucose today was 120.
[2025-05-21] MEDS ORDERED: Scopolamine REMOVE TRANSDERM PATCH ONE (08:00)
== END 2025-05-20 12:32 | disposition home health service (06) | DRG 470 ==
LOC: ASU 05:17 → PACUINP 05:17 → 3E 14:00